=== PATIENT | female | born 1990 | race Caucasian/White ===

== ENCOUNTER 2017-02-25 18:09 | Emergency (ER) | payer OTHER ==
--- NOTE | 2017-02-25 19:38 | DIAGNOSTIC IMAGING REPORT ---
PROCEDURE: XR CHEST 2 VIEW INDICATION: CHEST PAIN TECHNIQUE: Two views. COMPARISON: None. FINDINGS: The cardiomediastinal contour and central vasculature are within normal limits. The lungs are clear without focal consolidation, pleural effusion, or pneumothorax. The visualized osseous structures are intact. IMPRESSION: 1. Normal chest.
--- NOTE | 2017-02-25 20:41 | ED CLINICAL REPORT ---
Clinical Report - Physicians/Mid Levels [facility] [address] [place] [address] 02/25/2017 18:09 Patient: TRINIDAD JENKINS Time Seen: 18:45; upon arrival, initial patient contact, initial documentation, patient care assumed. Arrived- By private vehicle. Historian- patient. HISTORY OF PRESENT ILLNESS Chief Complaint: ABDOMINAL PAIN. At its maximum, severity described as moderate. When seen in the E.D., severity described as moderate. Modifying factors- worsened by supine position. Not relieved by anything. It is described as "pain" and cramping. No radiation. It is described as located in the left upper quadrant and left abdomen. This started about 2 - 3 months ago and is still present. The patient has had nausea. No loss of appetite, vomiting or diarrhea. No additional abdominal pain. No recent travel. Similar symptoms previously: Once, milder. ( had endoscopy and was dx with polyps years ago). Recent medical care: The patient was seen recently in the office. ( went to [facility] about a week ago, no meds given, was told to see gi for endoscopy). REVIEW OF SYSTEMS No constipation, black stools, hematemesis, difficulty with urination or pain with urination. No urinary frequency, bloody stools or fever. Denies current . She complains of mild left-sided chest pain (crampy), currently mild. No radiation, modifying factors or associated symptoms. All systems otherwise negative, except as recorded above. PAST HISTORY Negative. SOCIAL HISTORY Never smoker. No alcohol use or drug use. No recent travel. Is a local resident. FAMILY HISTORY Negative. ADDITIONAL NOTES The nursing notes have been reviewed with agreement regarding the chief complaint, HPI, ROS, PMH and patient medications and allergies. PHYSICAL EXAM Vital Signs: 02/25/2017 18:49 BP: 130/80. HR: 109. RR: 20. O2 saturation: 100%. Temp: 98.2 F. Pain level now: 6/10. Have been reviewed as abnormal and appear to be correct. Blood pressure normal. Tachycardic. Respiratory rate normal. Temperature normal. Oxygen saturation normal. Appearance: Alert. Oriented X3. No acute distress. Eyes: Pupils equal, round and reactive to light. Eyes normal inspection. Neck: Normal inspection. Neck supple. CVS: Normal heart rate and rhythm. Heart sounds normal. Pulses normal. Respiratory: No respiratory distress. Breath sounds normal. Chest nontender. Abdomen: Soft and nontender. Bowel sounds normal. No organomegaly. No mass. Back: Normal inspection. Skin: Skin warm and dry. Normal skin color. No rash. Normal skin turgor. Extremities: Extremities exhibit normal ROM. No lower extremity edema. Neuro: Oriented X 3. No motor deficit. No sensory deficit. LABS, X-RAYS, AND EKG EKG: EKG time: (1932). No acute process. No acute ischemia. Normal EKG. Rate: 80. Normal EKG. The study has been interpreted contemporaneously by me (and dr banegas). The EKG appears to be a good tracing. Interpretation time: 1935. Chest X-ray: Normal Chest X-Ray. (IMPRESSION: 1. Normal chest. Electronically Final signed by:Cheyanne Dietrich MD 02/25/2017 7:37:53 PM). The X-rays were interpreted by the radiologist and contemporaneously by me. Laboratory Tests: UA-Culture if indicated: (ALIE: 02/25/2017 18:55) ( MsgRcvd 02/25/2017 20:15) Final results Test Result Flag Units (Reference) URINE COLOR YELLOW URINE APPEARANCE CLEAR URINE GLUCOSE NEGATIVE (NEGATIVE) URINE BILIRUBIN NEGATIVE (NEGATIVE) URINE KETONE 1+ (NEGATIVE) URINE SPECIFIC GRAVITY 1.010 (1.010-1.030) URINE PH 6.0 (5.0-8.0) URINE PROTEIN NEGATIVE (NEGATIVE) URINE UROBILINOGEN 0.2 EU/dL (0.2-1.0) URINE NITRITE NEGATIVE (NEGATIVE) URINE BLOOD NEGATIVE (NEGATIVE) URINE LEUK ESTERASE NEGATIVE (NEGATIVE) URINE RBC NONE SEEN rbc/hpf (0-1) URINE WBC 0-1 wbc/hpf (0-1) URINE EPITHELIAL CELLS 0-1 EPI/hpf (0-5) URINE BACTERIA NONE SEEN (NONE SEEN) URINE COMMENT CULT NOT INDICATED URINE CULTURES ARE SET-UP BASED ON THE FOLLOWING CRITERIA:POSITIVE NITRITEPOSITIVE LEUKOCYTE ESTERASEGREATER THAN 10 WHITE BLOOD CELLSMODERATE (2+) OR GREATER BACTERIA Urine: (ALIE: 02/25/2017 18:55) ( [facility] 02/25/2017 20:03) Final results Test Result Flag Units (Reference) URINE NEGATIVE CBC w Diff: (ALIE: 02/25/2017 19:35) ( [facility] 02/25/2017 19:56) Final results Test Result Flag Units (Reference) WHITE BLOOD COUNT 5.1 K/uL (4.5-11.5) RED BLOOD COUNT 4.63 M/uL (4.00-5.20) HEMOGLOBIN 15.3 gm/dL (12.0-16.0) HEMATOCRIT 45.2 % (36.0-46.0) MEAN CELL VOLUME 98 fL (80-100) MEAN CORPUSCULAR HGB 33 pg (26-34) MEAN CORPUSCULAR HGB CONC 34 g/dL (31-37) RED CELL DISTRIBUTION WIDTH 12.8 % (11.6-14.8) PLATELET COUNT 261 K/uL (150-400) NEUTROPHIL % 42.1 L % (50-75) LYMPH % 48.2 H % (25-40) MONO % 8.8 % (3-14) EOSINOPHIL % 0.5 % (0-4) BASOPHIL % 0.4 % (0-2) CMP: (ALIE: 02/25/2017 18:55) ( [facility] 02/25/2017 20:11) Final results Test Result Flag Units (Reference) GLUCOSE 96 mg/dL (70-110) BUN 9 mg/dL (7-18) CREATININE 0.9 mg/dL (0.6-1.3) Estimated GFR >60 mL/min Estimated GFR- >60 mL/min Note: Persistent reduction over 3 months in eGFR<60 mL/min/1.73 m2 defines CKD. Patients with eGFR values>=60 mL/min/1.73 m2 may also have CKD if evidence ofpersistent proteinuria. Additional information may be foundat www.kidney.org. SODIUM 142 mmol/L (136-145) POTASSIUM 3.4 L mmol/L (3.5-5.1) CHLORIDE 105 mmol/L (98-107) CARBON DIOXIDE 26 mmol/L (21-32) CALCIUM 9.4 mg/dL (8.5-10.1) TOTAL PROTEIN 8.1 g/dL (6.4-8.2) ALBUMIN 4.9 g/dL (3.3-5.0) BILIRUBIN, TOTAL 2.5 H mg/dL (0.0-1.0) ALKALINE PHOSPHATASE 46 U/L (46-116) AST (SGOT) 17 U/L (15-37) ALT (SGPT) 27 U/L (12-78) LIPASE 88 U/L (73-393) AMYLASE 39 U/L (25-115) . PROGRESS AND PROCEDURES Course of Care: nausea better after meds, and chest and abd pain, better, it took the edge off. 02/25/2017 20:00 BP: 115/65. HR: 83. RR: 16. O2 saturation: 100%. Pain level now: 6/10. Vital Signs: have been reviewed as normal and appear to be correct. Patient counseled in person regarding the patient's stable condition, test results and diagnosis. 20:37. Differential Diagnosis: I considered gastritis, gastroenteritis, peptic ulcer disease, gastroesophageal reflux disease, mesenteric lymphadenitis, diverticulitis, colon cancer, ulcerative colitis, biliary colic, cholecystitis, cholelithiasis, hepatitis, pancreatitis, common bile duct obstruction, hernia, urinary tract infection, ureterolithiasis, ovarian cyst, ovarian torsion, , endometriosis, cancer and viral syndrome as a possible cause of abdominal pain in this patient. This is a partial list of diagnoses considered. Above considerations are based on history, physical exam, reassessment and laboratory data. Differential diagnosis was discussed with patient. Disposition: Discharged home in good and improved condition (20:41). Condition: good and stable. CLINICAL IMPRESSION Acute left upper quadrant abdominal pain of undetermined cause. INSTRUCTIONS Do not work tomorrow, for two days. Warnings: GENERAL WARNINGS: Return or contact your physician immediately if your condition worsens or changes unexpectedly, if not improving as expected, or if other problems arise. SPECIFICALLY, return if you develop pain in the abdomen or pelvis, fever, the inability to keep fluids down, blood in vomitus, blood in diarrhea, fainting or lightheadedness. Prescription Medications: Zofran 4 mg: Take 1 orally every six hours as needed for nausea/vomiting. Dispense ten (10). No refills. Substitution is permissible. Pepcid 20 mg tablets: Take 1 orally every 12 hours. Dispense thirty (30). No refills. Substitution is permissible. Ultram 50 mg tablets: take 1-2 orally every 6 hours as needed for pain. Dispense twenty (20). No refills. Substitution is permissible. Follow-up: Follow up with your doctor in two days even if well. Call for an appointment. Summary of care provided to patient. Understanding of the discharge instructions verbalized by patient. Follow-up with: Eduin Triana MD, Gastroenterology, [address] [place] [address], [address] [place] [address] Ave[address] , [place], [address]; Thierno Ayoub MD, Gastroenterology, [address] [place] [address], [address] [place] [address], [address], [place], [address]; Vin An MD, Gastroenteroloy, [address] [place] [address], [address] [place] [address] [address], [place], [address]; Osorio Christian MD, Gastroenteroloy, [address] [place] [address], [address] [place] [address] [address], [place], [address]; Damaso Gutiérrez MD, Gastroenteroloy, [address] [place] [address], [address] [place] [address] [address], [place], [address] Follow up in about two days as needed. Call for an appointment. (Electronically signed by Jazz Lopes A.R.N.P. 02/25/2017 23:07)
--- NOTE | 2017-02-25 20:41 | ED CLINICAL REPORT ---
Clinical Report - Physicians/Mid Levels [facility] [address] [place] [address] 02/25/2017 18:09 Patient: TRINIDAD JENKINS Time Seen: 18:45; upon arrival, initial patient contact, initial documentation, patient care assumed. Arrived- By private vehicle. Historian- patient. HISTORY OF PRESENT ILLNESS Chief Complaint: ABDOMINAL PAIN. At its maximum, severity described as moderate. When seen in the E.D., severity described as moderate. Modifying factors- worsened by supine position. Not relieved by anything. It is described as "pain" and cramping. No radiation. It is described as located in the left upper quadrant and left abdomen. This started about 2 - 3 months ago and is still present. The patient has had nausea. No loss of appetite, vomiting or diarrhea. No additional abdominal pain. No recent travel. Similar symptoms previously: Once, milder. ( had endoscopy and was dx with polyps years ago). Recent medical care: The patient was seen recently in the office. ( went to [facility] about a week ago, no meds given, was told to see gi for endoscopy). REVIEW OF SYSTEMS No constipation, black stools, hematemesis, difficulty with urination or pain with urination. No urinary frequency, bloody stools or fever. Denies current . She complains of mild left-sided chest pain (crampy), currently mild. No radiation, modifying factors or associated symptoms. All systems otherwise negative, except as recorded above. PAST HISTORY Negative. SOCIAL HISTORY Never smoker. No alcohol use or drug use. No recent travel. Is a local resident. FAMILY HISTORY Negative. ADDITIONAL NOTES The nursing notes have been reviewed with agreement regarding the chief complaint, HPI, ROS, PMH and patient medications and allergies. PHYSICAL EXAM Vital Signs: 02/25/2017 18:49 BP: 130/80. HR: 109. RR: 20. O2 saturation: 100%. Temp: 98.2 F. Pain level now: 6/10. Have been reviewed as abnormal and appear to be correct. Blood pressure normal. Tachycardic. Respiratory rate normal. Temperature normal. Oxygen saturation normal. Appearance: Alert. Oriented X3. No acute distress. Eyes: Pupils equal, round and reactive to light. Eyes normal inspection. Neck: Normal inspection. Neck supple. CVS: Normal heart rate and rhythm. Heart sounds normal. Pulses normal. Respiratory: No respiratory distress. Breath sounds normal. Chest nontender. Abdomen: Soft and nontender. Bowel sounds normal. No organomegaly. No mass. Back: Normal inspection. Skin: Skin warm and dry. Normal skin color. No rash. Normal skin turgor. Extremities: Extremities exhibit normal ROM. No lower extremity edema. Neuro: Oriented X 3. No motor deficit. No sensory deficit. LABS, X-RAYS, AND EKG EKG: EKG time: (1932). No acute process. No acute ischemia. Normal EKG. Rate: 80. Normal EKG. The study has been interpreted contemporaneously by me (and dr banegas). The EKG appears to be a good tracing. Interpretation time: 1935. Chest X-ray: Normal Chest X-Ray. (IMPRESSION: 1. Normal chest. Electronically Final signed by:Cheyanne Dietrich MD 02/25/2017 7:37:53 PM). The X-rays were interpreted by the radiologist and contemporaneously by me. Laboratory Tests: UA-Culture if indicated: (ALIE: 02/25/2017 18:55) ( MsgRcvd 02/25/2017 20:15) Final results Test Result Flag Units (Reference) URINE COLOR YELLOW URINE APPEARANCE CLEAR URINE GLUCOSE NEGATIVE (NEGATIVE) URINE BILIRUBIN NEGATIVE (NEGATIVE) URINE KETONE 1+ (NEGATIVE) URINE SPECIFIC GRAVITY 1.010 (1.010-1.030) URINE PH 6.0 (5.0-8.0) URINE PROTEIN NEGATIVE (NEGATIVE) URINE UROBILINOGEN 0.2 EU/dL (0.2-1.0) URINE NITRITE NEGATIVE (NEGATIVE) URINE BLOOD NEGATIVE (NEGATIVE) URINE LEUK ESTERASE NEGATIVE (NEGATIVE) URINE RBC NONE SEEN rbc/hpf (0-1) URINE WBC 0-1 wbc/hpf (0-1) URINE EPITHELIAL CELLS 0-1 EPI/hpf (0-5) URINE BACTERIA NONE SEEN (NONE SEEN) URINE COMMENT CULT NOT INDICATED URINE CULTURES ARE SET-UP BASED ON THE FOLLOWING CRITERIA:POSITIVE NITRITEPOSITIVE LEUKOCYTE ESTERASEGREATER THAN 10 WHITE BLOOD CELLSMODERATE (2+) OR GREATER BACTERIA Urine: (ALIE: 02/25/2017 18:55) ( [facility] 02/25/2017 20:03) Final results Test Result Flag Units (Reference) URINE NEGATIVE CBC w Diff: (ALIE: 02/25/2017 19:35) ( [facility] 02/25/2017 19:56) Final results Test Result Flag Units (Reference) WHITE BLOOD COUNT 5.1 K/uL (4.5-11.5) RED BLOOD COUNT 4.63 M/uL (4.00-5.20) HEMOGLOBIN 15.3 gm/dL (12.0-16.0) HEMATOCRIT 45.2 % (36.0-46.0) MEAN CELL VOLUME 98 fL (80-100) MEAN CORPUSCULAR HGB 33 pg (26-34) MEAN CORPUSCULAR HGB CONC 34 g/dL (31-37) RED CELL DISTRIBUTION WIDTH 12.8 % (11.6-14.8) PLATELET COUNT 261 K/uL (150-400) NEUTROPHIL % 42.1 L % (50-75) LYMPH % 48.2 H % (25-40) MONO % 8.8 % (3-14) EOSINOPHIL % 0.5 % (0-4) BASOPHIL % 0.4 % (0-2) CMP: (ALIE: 02/25/2017 18:55) ( [facility] 02/25/2017 20:11) Final results Test Result Flag Units (Reference) GLUCOSE 96 mg/dL (70-110) BUN 9 mg/dL (7-18) CREATININE 0.9 mg/dL (0.6-1.3) Estimated GFR >60 mL/min Estimated GFR- >60 mL/min Note: Persistent reduction over 3 months in eGFR<60 mL/min/1.73 m2 defines CKD. Patients with eGFR values>=60 mL/min/1.73 m2 may also have CKD if evidence ofpersistent proteinuria. Additional information may be foundat www.[email or web address].org. SODIUM 142 mmol/L (136-145) POTASSIUM 3.4 L mmol/L (3.5-5.1) CHLORIDE 105 mmol/L (98-107) CARBON DIOXIDE 26 mmol/L (21-32) CALCIUM 9.4 mg/dL (8.5-10.1) TOTAL PROTEIN 8.1 g/dL (6.4-8.2) ALBUMIN 4.9 g/dL (3.3-5.0) BILIRUBIN, TOTAL 2.5 H mg/dL (0.0-1.0) ALKALINE PHOSPHATASE 46 U/L (46-116) AST (SGOT) 17 U/L (15-37) ALT (SGPT) 27 U/L (12-78) LIPASE 88 U/L (73-393) AMYLASE 39 U/L (25-115) . PROGRESS AND PROCEDURES Course of Care: nausea better after meds, and chest and abd pain, better, it took the edge off. 02/25/2017 20:00 BP: 115/65. HR: 83. RR: 16. O2 saturation: 100%. Pain level now: 6/10. Vital Signs: have been reviewed as normal and appear to be correct. Patient counseled in person regarding the patient's stable condition, test results and diagnosis. 20:37. Differential Diagnosis: I considered gastritis, gastroenteritis, peptic ulcer disease, gastroesophageal reflux disease, mesenteric lymphadenitis, diverticulitis, colon cancer, ulcerative colitis, biliary colic, cholecystitis, cholelithiasis, hepatitis, pancreatitis, common bile duct obstruction, hernia, urinary tract infection, ureterolithiasis, ovarian cyst, ovarian torsion, , endometriosis, cancer and viral syndrome as a possible cause of abdominal pain in this patient. This is a partial list of diagnoses considered. Above considerations are based on history, physical exam, reassessment and laboratory data. Differential diagnosis was discussed with patient. Disposition: Discharged home in good and improved condition (20:41). Condition: good and stable. CLINICAL IMPRESSION Acute left upper quadrant abdominal pain of undetermined cause. INSTRUCTIONS Do not work tomorrow, for two days. Warnings: GENERAL WARNINGS: Return or contact your physician immediately if your condition worsens or changes unexpectedly, if not improving as expected, or if other problems arise. SPECIFICALLY, return if you develop pain in the abdomen or pelvis, fever, the inability to keep fluids down, blood in vomitus, blood in diarrhea, fainting or lightheadedness. Prescription Medications: Zofran 4 mg: Take 1 orally every six hours as needed for nausea/vomiting. Dispense ten (10). No refills. Substitution is permissible. Pepcid 20 mg tablets: Take 1 orally every 12 hours. Dispense thirty (30). No refills. Substitution is permissible. Ultram 50 mg tablets: take 1-2 orally every 6 hours as needed for pain. Dispense twenty (20). No refills. Substitution is permissible. Follow-up: Follow up with your doctor in two days even if well. Call for an appointment. Summary of care provided to patient. Understanding of the discharge instructions verbalized by patient. Follow-up with: Eduin Triana MD, Gastroenterology, [address] [place] [address], [address] [place] [address] Ave[address] , [place], [address]; Thierno Ayoub MD, Gastroenterology, [address] [place] [address], [address] [place] [address], [address], [place], [address]; Vin An MD, Gastroenteroloy, [address] [place] [address], [address] [place] [address] [address], [place], [address]; Osorio Christian MD, Gastroenteroloy, [address] [place] [address], [address] [place] [address] [address], [place], [address]; Damaso Gutiérrez MD, Gastroenteroloy, [address] [place] [address], [address] [place] [address] [address], [place], [address] Follow up in about two days as needed. Call for an appointment. (Electronically signed by Jazz Lopes A.R.N.P. 02/25/2017 23:07)
--- NOTE | 2017-02-25 20:41 | ED ORDER SUMMARY ---
..... Patient: TRINIDAD JENKINS OrderSheet [facility] VisitID: [id number] [address] [place] [address] 26y, F Registration Date/Time: 02/25/2017 ORDER SHEET Weight: 52.1 kg (stated) Allergies: No Known Drug Allergy GENERAL ORDERS: Chest 2V Urgent (19:17 02/25/2017 HBivens A.R.N.P.) (Ack 19:23 IJurca ER Tech1) (19:24 IJurca ER Tech1) CBC w Diff Urgent (19:17 02/25/2017 HBivens A.R.N.P.) (Ack 19:23 IJurca ER Tech1) (19:44 DDavis R.N.) CMP Urgent (19:02/25/2017 HBivens A.R.N.P.) (Ack 19:23 IJurca ER Tech1) (19:44 DDavis R.N.) UA-Culture if indicated Urgent (19:17 02/25/2017 HBivens A.R.N.P.) (Ack 19:23 IJurca ER Tech1) (19:44 DDavis R.N.) Amylase Urgent (19:17 02/25/2017 HBivens A.R.N.P.) (Ack 19:23 IJurca ER Tech1) (19:44 DDavis R.N.) Lipase Urgent (19:17 02/25/2017 HBivens A.R.N.P.) (Ack 19:23 IJurca ER Tech1) (19:44 DDavis R.N.) Urine Urgent (19:17 02/25/2017 HBivens A.R.N.P.) (Ack 19:23 IJurca ER Tech1) (19:44 DDavis R.N.) EKG - ER Stat (19:02/25/2017 HBivens A.R.N.P.) (Ack 19:23 IJurca ER Tech1) (19:41 CHategekimana) MEDICATION ORDERS: IV FLUIDS: Toradol IV 30 mg (NOW) (19:17 02/25/2017 HBivens A.R.N.P.) (19:45 DDavis R.N.) Zofran IV 4 mg (NOW) (19:02/25/2017 HBivens A.R.N.P.) (19:45 DDavis R.N.) IV Saline Lock (19:02/25/2017 HBivens A.R.N.P.) (19:45 DDavis R.N.) ORDER SHEET NOTES: [Electronically signed by Beth Ramirez R.N. (22:22 02/25/2017)] [Electronically signed by Jazz LopesNHumzaPHumza (23:06 02/25/2017)] [Electronically locked/signed by Beth Ramirez R.N. (22:22 02/25/2017)]
--- NOTE | 2017-02-25 20:41 | ED ORDER SUMMARY ---
..... Patient: TRINIDAD JENKINS OrderSheet [facility] VisitID: [id number] [address] [place] [address] 26y, F Registration Date/Time: 02/25/2017 ORDER SHEET Weight: 52.1 kg (stated) Allergies: No Known Drug Allergy GENERAL ORDERS: Chest 2V Urgent (19:17 02/25/2017 HBivens A.R.N.P.) (Ack 19:23 IJurca ER Tech1) (19:24 IJurca ER Tech1) CBC w Diff Urgent (19:17 02/25/2017 HBivens A.R.N.P.) (Ack 19:23 IJurca ER Tech1) (19:44 DDavis R.N.) CMP Urgent (19:02/25/2017 HBivens A.R.N.P.) (Ack 19:23 IJurca ER Tech1) (19:44 DDavis R.N.) UA-Culture if indicated Urgent (19:17 02/25/2017 HBivens A.R.N.P.) (Ack 19:23 IJurca ER Tech1) (19:44 DDavis R.N.) Amylase Urgent (19:17 02/25/2017 HBivens A.R.N.P.) (Ack 19:23 IJurca ER Tech1) (19:44 DDavis R.N.) Lipase Urgent (19:17 02/25/2017 HBivens A.R.N.P.) (Ack 19:23 IJurca ER Tech1) (19:44 DDavis R.N.) Urine Urgent (19:17 02/25/2017 HBivens A.R.N.P.) (Ack 19:23 IJurca ER Tech1) (19:44 DDavis R.N.) EKG - ER Stat (19:02/25/2017 HBivens A.R.N.P.) (Ack 19:23 IJurca ER Tech1) (19:41 CHategekimana) MEDICATION ORDERS: IV FLUIDS: Toradol IV 30 mg (NOW) (19:17 02/25/2017 HBivens A.R.N.P.) (19:45 DDavis R.N.) Zofran IV 4 mg (NOW) (19:02/25/2017 HBivens A.R.N.P.) (19:45 DDavis R.N.) IV Saline Lock (19:02/25/2017 HBivens A.R.N.P.) (19:45 DDavis R.N.) ORDER SHEET NOTES: [Electronically signed by Beth Ramirez R.N. (22:22 02/25/2017)] [Electronically signed by Jazz LopesNHumzaPHumza (23:06 02/25/2017)] [Electronically locked/signed by Beth Ramirez R.N. (22:22 02/25/2017)]
--- NOTE | 2017-02-25 20:41 | ED NURSING NOTES ---
Clinical Report - Nurses Located Within [facility] [address] [place] [address] 02/25/2017 18:09 Patient: TRINIDAD JENKINS TRIAGE Triage time 1840. Acuity: LEVEL 3. Chief Complaint: (pt states she has had GI upset for a couple of weeks. started having chest pain last night that awoker her from sleep). 18:40. --18:53 Beth Ramirez R.N. 18:49 02/25/17. BP: 130/80. HR: 109. RR: 20. O2 saturation: 100%. Temp: 98.2 F. Pain level now: 05/02. --18:53 Beth Ramirez R.N. Weight: 52.1 kg stated. Height/Length: 67 inches Per Patient. BMI: 18. --18:51 Beth Ramirez R.N. Medications None. --18:49 Beth Ramirez R.N. Allergies No Known Drug Allergy. --18:49 Beth Ramirez R.N. History Arrived by private vehicle. Historian: patient. Accompanied by family. Primary physician (). The patient has had difficulty breathing, nausea and a cough. Reports experiencing sweating episodes. ( left sided abd discomfort "like I'm bloated"). No vomiting. PAST MEDICAL HX: Negative. Last normal menstrual period- finished yesterday. SURGERY HX: No history of previous surgery. SOCIAL HX: Never smoker. No alcohol use. --18:53 Beth Ramirez R.N. Interventions ID band on patient. To treatment room. --18:53 Beth Ramirez R.N. PHYSICAL ASSESSMENT 18:40. Ambulatory to room. Patient gowned. GENERAL / NEURO / PSYCH: Alert. Oriented X 4. Appears anxious. RESPIRATORY: Respirations not labored. CVS: Pulses within normal limits. Capillary refill less than 2 seconds. GI / : The patient has had nausea. Abdomen soft. Abdominal tenderness. EXTREMITIES: No lower extremity edema. SKIN: Skin is warm and dry. --18:53 Beth Ramirez R.N. NURSING PROGRESS NOTES 18:40. Patient gowned. Reassurance given. Patient identifiers checked. Call light placed in reach. Side rails up. Bed placed in lowest position. Patient ready for evaluation- chart flagged. --18:53 Beth Ramirez R.N. ( Report received from Beth Ramirez, RN). --19:21 Tariq Pardo R.N. EKG time: (1933 PM). EKG was ordered, performed by a tech and shown to the ED physician. --19:42 Lily Ochoa 19:35 02/25/2017 Site #1 started via IV in the right antecubital space with an 20g angiocath, with aseptic technique and good blood return; one attempt. Blood drawn: rainbow set. Labeled in the presence of the patient and sent to the lab. Saline lock flushed with 10 mL saline. --19:45 Tariq Pardo R.N. 19:39 02/25/2017 Zofran (Ondansetron HCl) IVP 4 mg given over 2 minute(s) via site #1. Allergies verified and confirmed 5 rights. IV patency established. IV site checked: no pain, redness, or swelling. IV flushed thoroughly pre- and post-medication administration. IVP given by RN. --19:45 Tariq Pardo R.N. 19:42 02/25/2017 Toradol IVP 30 mg given over 2 minute(s) via site #1. Allergies verified and confirmed 5 rights. IV patency established. IV site checked: no pain, redness, or swelling. IV flushed thoroughly pre- and post-medication administration. IVP given by RN. --19:45 Tariq Pardo R.N. Urine test negative. flood control engineer check passed. --19:47 Tariq Pardo R.N. ( Report given to Beth Ramirez, RN--Patient care transferred back to her at this time.). --19:59 Tariq Pardo R.N. 20:00 02/25/17. BP: 115/65. HR: 83. RR: 16. O2 saturation: 100% on room air. Temp: deferred. Pain level now: 6/10. Additional comments: playing game on phone, family at bedside. in no acute distress . --20:32 Beth Ramirez R.N. 20:02/25/2017 Toradol IVP Response: symptoms are the same. The patient feels the same. (no change). --20:33 Beth Ramirez R.N. 20:02/25/2017 Zofran IVP Response: pain is gone now. Symptoms have improved the patient feels better. (no nausea for last 20 min). --20:33 Beth Ramirez R.N. 21:02/25/2017 Site #1 removed upon discharge. Bandaid applied. --21:00 Beth Ramirez R.N. 21:02/25/2017 IV Saline Lock Drip IV Discontinued: bag #1 STOPPED upon discharge. Total amount infused: 0 mL. IV patency established. IV site checked: no pain, redness, or swelling. IV flushed thoroughly. --21:00 Beth Ramirez R.N. DISPOSITION / DISCHARGE 2100. Condition at departure: improved and stable. No learning barriers present. Discharge instructions provided and reviewed with the patient and spouse. Reviewed medication(s) (pepcid, zofran, ultram). Patient and spouse verbalized understanding. Written instructions provided in Albanian. The patient was discharged home and accompanied by spouse. She left the Emergency Department ambulatory and via private vehicle. Spouse driving. --22:21 Beth Ramirez R.N. 21:00 02/25/17. BP: 120/82. HR: 76. RR: 16. O2 saturation: 99% on room air. Temp: deferred. Pain level now: 610. --22:21 Beth Ramirez R.N. Locked/Released at 02/25/2017 22:22 by Beth Ramirez R.N.
--- NOTE | 2017-02-25 23:07 | ED DISCHARGE INSTRUCTIONS ---
Patient: TRINIDAD JENKINS General Instructions [facility] VisitID: [id number] [place] [address] 26y, F Registration Date/Time: 02/25/2017 Acute left upper quadrant abdominal pain of undetermined cause. INSTRUCTIONS Do not work tomorrow, for two days. Warnings: GENERAL WARNINGS: Return or contact your physician immediately if your condition worsens or changes unexpectedly, if not improving as expected, or if other problems arise. SPECIFICALLY, return if you develop pain in the abdomen or pelvis, fever, the inability to keep fluids down, blood in vomitus, blood in diarrhea, fainting or lightheadedness. Prescription Medications: Zofran 4 mg: Take 1 orally every six hours as needed for nausea/vomiting. Dispense ten (10). No refills. Substitution is permissible. Pepcid 20 mg tablets: Take 1 orally every 12 hours. Dispense thirty (30). No refills. Substitution is permissible. Ultram 50 mg tablets: take 1-2 orally every 6 hours as needed for pain. Dispense twenty (20). No refills. Substitution is permissible. Follow-up: Follow up with your doctor in two days even if well. Call for an appointment. Summary of care provided to patient. Understanding of the discharge instructions verbalized by patient. Follow-up with: Eduin Triana MD, Gastroenterology, , [address] [place] [address] Ave[address] , [place], [address]; Thierno Ayoub MD, Gastroenterology, , [address] [place] [address], [address], [place], [address]; Vin An MD, Gastroenteroloy, , [address] [place] [address] [address], [place], [address]; Osorio Christian MD, Gastroenteroloy, , [address] [place] [address] [address], [place], [address]; Damaso Gutiérrez MD, Gastroenteroloy, , [address] [place] [address] [address], [place], [address] Follow up in about two days as needed. Call for an appointment. ADDITIONAL INFORMATION Abdominal Pain, Unknown Cause (Female) The exact cause of your abdominal (stomach) pain is not certain. This does not mean that this is something to worry about, or the right tests were not done. Everyone likes to know the exact cause of the problem, but sometimes with abdominal pain, there is no clear-cut cause, and this could be a good thing. The good news is that your symptoms can be treated, and you will feel better. Your condition does not seem serious now; however, sometimes the signs of a serious problem may take more time to appear. For this reason,it is important for you to watch for any new symptoms, problems,or worsening of your condition. Over the next few days, the abdominal pain may come and go, or be continuous. Other common symptoms can include nausea and vomiting. Sometimes it can be difficult to tell if you feel nauseous, you may just feel bad and not associate that feeling with nausea. Constipation, diarrhea, and a fever may go along with the pain. The pain may continue even if treated correctly over the following days. Depending on how things go, sometimes the cause can become clear and may require further or different treatment. Additional evaluations, medications, or tests may be needed. Home care Your health care provider may prescribe medications for pain, symptoms, or an infection. Follow the health care provider's instructions for taking these medications. General care Rest until your next exam. No strenuous activities. Try to find positions that ease discomfort. A small pillow placed on the abdomen may help relieve pain. Something warm on your abdomen (such as a heating pad) may help, but be careful not to burn yourself. Diet Do not force yourself to eat, especially if having cramps, vomiting, or diarrhea. Water is important so you do not get dehydrated. Soup may also be good. Sports drinks may also help, especially if they are not too acidic. Make sure you don't drink sugary drinks as this can make things worse. Take liquids in small amounts. Do not guzzle them. Caffeine sometimes makes the pain and cramping worse. Avoid dairy products if you have vomiting or diarrhea. Don't eat large amounts at a time. Wait a few minutes between bites. Eat a diet low in fiber (called a low-residue diet). Foods allowed include refined breads, white rice, fruit and vegetable juices without pulp, tender meats. These foods will pass more easily through the intestine. Avoid whole-grain foods, whole fruits and vegetables, meats, seeds and nuts, fried or fatty foods, dairy, alcohol and spicy foods until your symptoms go away. Follow-up care Follow up with your health care provider as instructed, or if your pain does not begin to improve in the next 24 hours. When to seek medical care Seek prompt medical care if any of the following occur: Pain gets worse or moves to the right lower abdomen New or worsening vomiting or diarrhea Swelling of the abdomen Unable to pass stool for more than three days Fever of 100.4F (38C) or higher, or as directed by your healthcare provider. Blood in vomit or bowel movements (dark red or black color) Jaundice (yellow color of eyes and skin) Weakness, dizziness Chest, arm, back, neck or jaw pain Unexpected vaginal bleeding or missed period Call 911 Call emergency services if any of the following occur: Trouble breathing Confusion Fainting or loss of consciousness Rapid heart rate Seizure Ondansetron Oral disintegrating tablet What is this medicine? ONDANSETRON (on RODOLFO se daphne) is used to treat nausea and vomiting caused by chemotherapy. It is also used to prevent or treat nausea and vomiting after surgery. How should I use this medicine? These tablets are made to dissolve in the mouth. Do not try to push the tablet through the foil backing. With dry hands, peel away the foil backing and gently remove the tablet. Place the tablet in the mouth and allow it to dissolve, then swallow. While you may take these tablets with water, it is not necessary to do so. Talk to your mgmt specialist regarding the use of this medicine in children. Special care may be needed. What side effects may I notice from receiving this medicine? Side effects that you should report to your doctor or health care associate as soon as possible: allergic reactions like skin rash, itching or hives, swelling of the face, lips, or tongue breathing problems dizziness fast or irregular heartbeat feeling faint or lightheaded, falls fever and chills swelling of the hands and feet tightness in the chest Side effects that usually do not require medical attention (report to your doctor or health care associate if they continue or are bothersome): constipation or diarrhea headache What may interact with this medicine? Do not take this medicine with any of the following medications: -apomorphine -cisapride -dofetilide -dronedarone -pimozide -thioridazine -ziprasidone This medicine may also interact with the following medications: -carbamazepine -phenytoin -rifampicin -tramadol -other medicines that prolong the QT interval (cause an abnormal heart rhythm) What if I miss a dose? If you miss a dose, take it as soon as you can. If it is almost time for your next dose, take only that dose. Do not take double or extra doses. Where should I keep my medicine? Keep out of the reach of children. Store between 2 and 30 degrees C (36 and 86 degrees F). Throw away any unused medicine after the expiration date. What should I tell my health care provider before I take this medicine? They need to know if you have any of these conditions: heart disease history of irregular heartbeat liver disease low levels of magnesium or potassium in the blood an unusual or allergic reaction to ondansetron, granisetron, other medicines, foods, dyes, or preservatives or trying to get breast-feeding What should I watch for while using this medicine? Check with your doctor or health care associate as soon as you can if you have any sign of an allergic reaction. Famotidine Oral tablet What is this medicine? FAMOTIDINE (fa GHADA ti adri) is a type of antihistamine that blocks the release of stomach acid. It is used to treat stomach or intestinal ulcers. It can also relieve heartburn from acid reflux. How should I use this medicine? Take this medicine by mouth with a glass of water. Follow the directions on the prescription label. If you only take this medicine once a day, take it at bedtime. Take your doses at regular intervals. Do not take your medicine more often than directed. Talk to your mgmt specialist regarding the use of this medicine in children. Special care may be needed. What side effects may I notice from receiving this medicine? Side effects that you should report to your doctor or health care associate as soon as possible: agitation, nervousness confusion hallucinations skin rash, itching Side effects that usually do not require medical attention (report to your doctor or health care associate if they continue or are bothersome): constipation diarrhea dizziness headache What may interact with this medicine? delavirdine itraconazole ketoconazole What if I miss a dose? If you miss a dose, take it as soon as you can. If it is almost time for your next dose, take only that dose. Do not take double or extra doses. Where should I keep my medicine? Keep out of the reach of children. Store at room temperature between 15 and 30 degrees C (59 and 86 degrees F). Do not freeze. Throw away any unused medicine after the expiration date. What should I tell my health care provider before I take this medicine? They need to know if you have any of these conditions: kidney or liver disease trouble swallowing an unusual or allergic reaction to famotidine, other medicines, foods, dyes, or preservatives or trying to get breast-feeding What should I watch for while using this medicine? Tell your doctor or health care associate if your condition does not start to get better or if it gets worse. Finish the full course of tablets prescribed, even if you feel better. Do not take with aspirin, ibuprofen or other antiinflammatory medicines. These can make your condition worse. Do not smoke cigarettes or drink alcohol. These cause irritation in your stomach and can increase the time it will take for ulcers to heal. If you get black, tarry stools or vomit up what looks like coffee grounds, call your doctor or health care associate at once. You may have a bleeding ulcer. Tramadol Hydrochloride Oral tablet What is this medicine? TRAMADOL (TRA ma dole) is a pain reliever. It is used to treat moderate to severe pain in adults. How should I use this medicine? Take this medicine by mouth with a full glass of water. Follow the directions on the prescription label. If the medicine upsets your stomach, take it with food or milk. Do not take more medicine than you are told to take. Talk to your mgmt specialist regarding the use of this medicine in children. Special care may be needed. What side effects may I notice from receiving this medicine? Side effects that you should report to your doctor or health care associate as soon as possible: allergic reactions like skin rash, itching or hives, swelling of the face, lips, or tongue breathing difficulties, wheezing confusion itching light headedness or fainting spells redness, blistering, peeling or loosening of the skin, including inside the mouth seizures Side effects that usually do not require medical attention (report to your doctor or health care associate if they continue or are bothersome): constipation dizziness drowsiness headache nausea, vomiting What may interact with this medicine? Do not take this medicine with any of the following medications: MAOIs like Carbex, Eldepryl, Marplan, Nardil, and Parnate This medicine may also interact with the following medications: alcohol or medicines that contain alcohol antihistamines benzodiazepines bupropion carbamazepine or oxcarbazepine clozapine cyclobenzaprine digoxin furazolidone linezolid medicines for depression, anxiety, or psychotic disturbances medicines for migraine headache like almotriptan, eletriptan, frovatriptan, naratriptan, rizatriptan, sumatriptan, zolmitriptan medicines for pain like pentazocine, buprenorphine, butorphanol, meperidine, nalbuphine, and propoxyphene medicines for sleep muscle relaxants naltrexone phenobarbital phenothiazines like perphenazine, thioridazine, chlorpromazine, mesoridazine, fluphenazine, prochlorperazine, promazine, and trifluoperazine procarbazine warfarin What if I miss a dose? If you miss a dose, take it as soon as you can. If it is almost time for your next dose, take only that dose. Do not take double or extra doses. Where should I keep my medicine? Keep out of the reach of children. Store at room temperature between 15 and 30 degrees C (59 and 86 degrees F). Keep container tightly closed. Throw away any unused medicine after the expiration date. What should I tell my health care provider before I take this medicine? They need to know if you have any of these conditions: brain tumor depression drug abuse or addiction head injury if you frequently drink alcohol containing drinks kidney disease or trouble passing urine liver disease lung disease, asthma, or breathing problems seizures or epilepsy suicidal thoughts, plans, or attempt; a previous suicide attempt by you or a family member an unusual or allergic reaction to tramadol, codeine, other medicines, foods, dyes, or preservatives or trying to get breast-feeding What should I watch for while using this medicine? Tell your doctor or health care associate if your pain does not go away, if it gets worse, or if you have new or a different type of pain. You may develop tolerance to the medicine. Tolerance means that you will need a higher dose of the medicine for pain relief. Tolerance is normal and is expected if you take this medicine for a long time. Do not suddenly stop taking your medicine because you may develop a severe reaction. Your body becomes used to the medicine. This does NOT mean you are addicted. Addiction is a behavior related to getting and using a drug for a non-medical reason. If you have pain, you have a medical reason to take pain medicine. Your doctor will tell you how much medicine to take. If your doctor wants you to stop the medicine, the dose will be slowly lowered over time to avoid any side effects. You may get drowsy or dizzy. Do not drive, use machinery, or do anything that needs mental alertness until you know how this medicine affects you. Do not stand or sit up quickly, especially if you are an older patient. This reduces the risk of dizzy or fainting spells. Alcohol can increase or decrease the effects of this medicine. Avoid alcoholic drinks. You may have constipation. Try to have a bowel movement at least every 2 to 3 days. If you do not have a bowel movement for 3 days, call your doctor or health care associate. Your mouth may get dry. Chewing sugarless gum or sucking hard candy, and drinking plenty of water may help. Contact your doctor if the problem does not go away or is severe. You have been given the following additional information: Abdominal Pain, Unknown Cause, (Female) Ondansetron Oral disintegrating tablet Famotidine Oral tablet Tramadol Hydrochloride Oral tablet Do not work tomorrow, for two days. (Electronically signed by Jazz Lopes A.R.N.P. 02/25/2017 23:07)
--- NOTE | 2017-02-25 23:07 | ED DISCHARGE INSTRUCTIONS ---
Patient: TRINIDAD JENKINS General Instructions Located Within [facility] VisitID: [id number] [place] [address] 26y, F Registration Date/Time: 02/25/2017 Acute left upper quadrant abdominal pain of undetermined cause. INSTRUCTIONS Do not work tomorrow, for two days. Warnings: GENERAL WARNINGS: Return or contact your physician immediately if your condition worsens or changes unexpectedly, if not improving as expected, or if other problems arise. SPECIFICALLY, return if you develop pain in the abdomen or pelvis, fever, the inability to keep fluids down, blood in vomitus, blood in diarrhea, fainting or lightheadedness. Prescription Medications: Zofran 4 mg: Take 1 orally every six hours as needed for nausea/vomiting. Dispense ten (10). No refills. Substitution is permissible. Pepcid 20 mg tablets: Take 1 orally every 12 hours. Dispense thirty (30). No refills. Substitution is permissible. Ultram 50 mg tablets: take 1-2 orally every 6 hours as needed for pain. Dispense twenty (20). No refills. Substitution is permissible. Follow-up: Follow up with your doctor in two days even if well. Call for an appointment. Summary of care provided to patient. Understanding of the discharge instructions verbalized by patient. Follow-up with: Eduin Triana MD, Gastroenterology, , [address] [place] [address] Ave[address] , [place], [address]; Thierno Ayoub MD, Gastroenterology, , [address] [place] [address], [address], [place], [address]; Vin An MD, Gastroenteroloy, , [address] [place] [address] [address], [place], [address]; Osorio Christian MD, Gastroenteroloy, , [address] [place] [address] [address], [place], [address]; Damaso Gutiérrez MD, Gastroenteroloy, , [address] [place] [address] [address], [place], [address] Follow up in about two days as needed. Call for an appointment. ADDITIONAL INFORMATION Abdominal Pain, Unknown Cause (Female) The exact cause of your abdominal (stomach) pain is not certain. This does not mean that this is something to worry about, or the right tests were not done. Everyone likes to know the exact cause of the problem, but sometimes with abdominal pain, there is no clear-cut cause, and this could be a good thing. The good news is that your symptoms can be treated, and you will feel better. Your condition does not seem serious now; however, sometimes the signs of a serious problem may take more time to appear. For this reason,it is important for you to watch for any new symptoms, problems,or worsening of your condition. Over the next few days, the abdominal pain may come and go, or be continuous. Other common symptoms can include nausea and vomiting. Sometimes it can be difficult to tell if you feel nauseous, you may just feel bad and not associate that feeling with nausea. Constipation, diarrhea, and a fever may go along with the pain. The pain may continue even if treated correctly over the following days. Depending on how things go, sometimes the cause can become clear and may require further or different treatment. Additional evaluations, medications, or tests may be needed. Home care Your health care provider may prescribe medications for pain, symptoms, or an infection. Follow the health care provider's instructions for taking these medications. General care Rest until your next exam. No strenuous activities. Try to find positions that ease discomfort. A small pillow placed on the abdomen may help relieve pain. Something warm on your abdomen (such as a heating pad) may help, but be careful not to burn yourself. Diet Do not force yourself to eat, especially if having cramps, vomiting, or diarrhea. Water is important so you do not get dehydrated. Soup may also be good. Sports drinks may also help, especially if they are not too acidic. Make sure you don't drink sugary drinks as this can make things worse. Take liquids in small amounts. Do not guzzle them. Caffeine sometimes makes the pain and cramping worse. Avoid dairy products if you have vomiting or diarrhea. Don't eat large amounts at a time. Wait a few minutes between bites. Eat a diet low in fiber (called a low-residue diet). Foods allowed include refined breads, white rice, fruit and vegetable juices without pulp, tender meats. These foods will pass more easily through the intestine. Avoid whole-grain foods, whole fruits and vegetables, meats, seeds and nuts, fried or fatty foods, dairy, alcohol and spicy foods until your symptoms go away. Follow-up care Follow up with your health care provider as instructed, or if your pain does not begin to improve in the next 24 hours. When to seek medical care Seek prompt medical care if any of the following occur: Pain gets worse or moves to the right lower abdomen New or worsening vomiting or diarrhea Swelling of the abdomen Unable to pass stool for more than three days Fever of 100.4F (38C) or higher, or as directed by your healthcare provider. Blood in vomit or bowel movements (dark red or black color) Jaundice (yellow color of eyes and skin) Weakness, dizziness Chest, arm, back, neck or jaw pain Unexpected vaginal bleeding or missed period Call 911 Call emergency services if any of the following occur: Trouble breathing Confusion Fainting or loss of consciousness Rapid heart rate Seizure Ondansetron Oral disintegrating tablet What is this medicine? ONDANSETRON (on RODOLFO se daphne) is used to treat nausea and vomiting caused by chemotherapy. It is also used to prevent or treat nausea and vomiting after surgery. How should I use this medicine? These tablets are made to dissolve in the mouth. Do not try to push the tablet through the foil backing. With dry hands, peel away the foil backing and gently remove the tablet. Place the tablet in the mouth and allow it to dissolve, then swallow. While you may take these tablets with water, it is not necessary to do so. Talk to your windscreen fitter regarding the use of this medicine in children. Special care may be needed. What side effects may I notice from receiving this medicine? Side effects that you should report to your doctor or health care aid as soon as possible: allergic reactions like skin rash, itching or hives, swelling of the face, lips, or tongue breathing problems dizziness fast or irregular heartbeat feeling faint or lightheaded, falls fever and chills swelling of the hands and feet tightness in the chest Side effects that usually do not require medical attention (report to your doctor or health care aid if they continue or are bothersome): constipation or diarrhea headache What may interact with this medicine? Do not take this medicine with any of the following medications: -apomorphine -cisapride -dofetilide -dronedarone -pimozide -thioridazine -ziprasidone This medicine may also interact with the following medications: -carbamazepine -phenytoin -rifampicin -tramadol -other medicines that prolong the QT interval (cause an abnormal heart rhythm) What if I miss a dose? If you miss a dose, take it as soon as you can. If it is almost time for your next dose, take only that dose. Do not take double or extra doses. Where should I keep my medicine? Keep out of the reach of children. Store between 2 and 30 degrees C (36 and 86 degrees F). Throw away any unused medicine after the expiration date. What should I tell my health care provider before I take this medicine? They need to know if you have any of these conditions: heart disease history of irregular heartbeat liver disease low levels of magnesium or potassium in the blood an unusual or allergic reaction to ondansetron, granisetron, other medicines, foods, dyes, or preservatives or trying to get breast-feeding What should I watch for while using this medicine? Check with your doctor or health care aid as soon as you can if you have any sign of an allergic reaction. Famotidine Oral tablet What is this medicine? FAMOTIDINE (fa GHADA ti adri) is a type of antihistamine that blocks the release of stomach acid. It is used to treat stomach or intestinal ulcers. It can also relieve heartburn from acid reflux. How should I use this medicine? Take this medicine by mouth with a glass of water. Follow the directions on the prescription label. If you only take this medicine once a day, take it at bedtime. Take your doses at regular intervals. Do not take your medicine more often than directed. Talk to your windscreen fitter regarding the use of this medicine in children. Special care may be needed. What side effects may I notice from receiving this medicine? Side effects that you should report to your doctor or health care aid as soon as possible: agitation, nervousness confusion hallucinations skin rash, itching Side effects that usually do not require medical attention (report to your doctor or health care aid if they continue or are bothersome): constipation diarrhea dizziness headache What may interact with this medicine? delavirdine itraconazole ketoconazole What if I miss a dose? If you miss a dose, take it as soon as you can. If it is almost time for your next dose, take only that dose. Do not take double or extra doses. Where should I keep my medicine? Keep out of the reach of children. Store at room temperature between 15 and 30 degrees C (59 and 86 degrees F). Do not freeze. Throw away any unused medicine after the expiration date. What should I tell my health care provider before I take this medicine? They need to know if you have any of these conditions: kidney or liver disease trouble swallowing an unusual or allergic reaction to famotidine, other medicines, foods, dyes, or preservatives or trying to get breast-feeding What should I watch for while using this medicine? Tell your doctor or health care aid if your condition does not start to get better or if it gets worse. Finish the full course of tablets prescribed, even if you feel better. Do not take with aspirin, ibuprofen or other antiinflammatory medicines. These can make your condition worse. Do not smoke cigarettes or drink alcohol. These cause irritation in your stomach and can increase the time it will take for ulcers to heal. If you get black, tarry stools or vomit up what looks like coffee grounds, call your doctor or health care aid at once. You may have a bleeding ulcer. Tramadol Hydrochloride Oral tablet What is this medicine? TRAMADOL (TRA ma dole) is a pain reliever. It is used to treat moderate to severe pain in adults. How should I use this medicine? Take this medicine by mouth with a full glass of water. Follow the directions on the prescription label. If the medicine upsets your stomach, take it with food or milk. Do not take more medicine than you are told to take. Talk to your windscreen fitter regarding the use of this medicine in children. Special care may be needed. What side effects may I notice from receiving this medicine? Side effects that you should report to your doctor or health care aid as soon as possible: allergic reactions like skin rash, itching or hives, swelling of the face, lips, or tongue breathing difficulties, wheezing confusion itching light headedness or fainting spells redness, blistering, peeling or loosening of the skin, including inside the mouth seizures Side effects that usually do not require medical attention (report to your doctor or health care aid if they continue or are bothersome): constipation dizziness drowsiness headache nausea, vomiting What may interact with this medicine? Do not take this medicine with any of the following medications: MAOIs like Carbex, Eldepryl, Marplan, Nardil, and Parnate This medicine may also interact with the following medications: alcohol or medicines that contain alcohol antihistamines benzodiazepines bupropion carbamazepine or oxcarbazepine clozapine cyclobenzaprine digoxin furazolidone linezolid medicines for depression, anxiety, or psychotic disturbances medicines for migraine headache like almotriptan, eletriptan, frovatriptan, naratriptan, rizatriptan, sumatriptan, zolmitriptan medicines for pain like pentazocine, buprenorphine, butorphanol, meperidine, nalbuphine, and propoxyphene medicines for sleep muscle relaxants naltrexone phenobarbital phenothiazines like perphenazine, thioridazine, chlorpromazine, mesoridazine, fluphenazine, prochlorperazine, promazine, and trifluoperazine procarbazine warfarin What if I miss a dose? If you miss a dose, take it as soon as you can. If it is almost time for your next dose, take only that dose. Do not take double or extra doses. Where should I keep my medicine? Keep out of the reach of children. Store at room temperature between 15 and 30 degrees C (59 and 86 degrees F). Keep container tightly closed. Throw away any unused medicine after the expiration date. What should I tell my health care provider before I take this medicine? They need to know if you have any of these conditions: brain tumor depression drug abuse or addiction head injury if you frequently drink alcohol containing drinks kidney disease or trouble passing urine liver disease lung disease, asthma, or breathing problems seizures or epilepsy suicidal thoughts, plans, or attempt; a previous suicide attempt by you or a family member an unusual or allergic reaction to tramadol, codeine, other medicines, foods, dyes, or preservatives or trying to get breast-feeding What should I watch for while using this medicine? Tell your doctor or health care aid if your pain does not go away, if it gets worse, or if you have new or a different type of pain. You may develop tolerance to the medicine. Tolerance means that you will need a higher dose of the medicine for pain relief. Tolerance is normal and is expected if you take this medicine for a long time. Do not suddenly stop taking your medicine because you may develop a severe reaction. Your body becomes used to the medicine. This does NOT mean you are addicted. Addiction is a behavior related to getting and using a drug for a non-medical reason. If you have pain, you have a medical reason to take pain medicine. Your doctor will tell you how much medicine to take. If your doctor wants you to stop the medicine, the dose will be slowly lowered over time to avoid any side effects. You may get drowsy or dizzy. Do not drive, use machinery, or do anything that needs mental alertness until you know how this medicine affects you. Do not stand or sit up quickly, especially if you are an older patient. This reduces the risk of dizzy or fainting spells. Alcohol can increase or decrease the effects of this medicine. Avoid alcoholic drinks. You may have constipation. Try to have a bowel movement at least every 2 to 3 days. If you do not have a bowel movement for 3 days, call your doctor or health care aid. Your mouth may get dry. Chewing sugarless gum or sucking hard candy, and drinking plenty of water may help. Contact your doctor if the problem does not go away or is severe. You have been given the following additional information: Abdominal Pain, Unknown Cause, (Female) Ondansetron Oral disintegrating tablet Famotidine Oral tablet Tramadol Hydrochloride Oral tablet Do not work tomorrow, for two days. (Electronically signed by Jazz Lopes A.R.N.P. 02/25/2017 23:07)
--- NOTE | 2017-02-25 23:07 | ED MED RECONCILIATION SUMMARY ---
Patient: TRINIDAD JENKINS Medication Reconciliation Report [facility] VisitID: [id number] [address] [place] [address] 26y, F Registration Date/Time: 02/25/2017 Weight: 52.1 kg Height/Length: 67 in. BMI: 18.0 ALLERGIES: No Known Drug Allergy The patient's Home Medications are listed below: NONE. The source(s) of the original Home Medication information: Not obtained. The following Medications were given to the patient in the Emergency Department: Toradol [IVP] IVP 30 mg, administered: 02/25/2017 7:42:00 PM Zofran [IVP] IVP 4 mg, administered: 02/25/2017 7:39:00 PM The following Medications were prescribed to the patient: Zofran 4 mg: Take 1 orally every six hours as needed for nausea/vomiting. Dispense ten (10). No refills. Substitution is permissible. -- Jazz Lopes A.R.N.P. Pepcid 20 mg tablets: Take 1 orally every 12 hours. Dispense thirty (30). No refills. Substitution is permissible. -- Jazz Lopes A.R.N.P. Ultram 50 mg tablets: take 1-2 orally every 6 hours as needed for pain. Dispense twenty (20). No refills. Substitution is permissible. -- Jazz Lopes A.R.N.P.
--- NOTE | 2017-02-25 23:07 | ED MAR SUMMARY ---
..... Medication Administration Record [facility] [address] [place] [address] Patient: TRINIDAD JENKINS Visit ID: [id number] 26y, F Weight: 52.1 kg Height/Length: 67 in BMI: 18 ALLERGIES: No Known Drug Allergy Given 19:39 02/25/2017 Tariq Pardo R.N. Medication Administered: ZOFRAN [IVP] (ONDANSETRON HCL), Dose: 4 mg IVP over 2 minute(s), Site: #1 right AC. Medication Ordered: Zofran IV 4 mg (NOW). Given 19:42 02/25/2017 Tariq Pardo R.N. Medication Administered: TORADOL [IVP], Dose: 30 mg IVP over 2 minute(s), Site: #1 right AC. Medication Ordered: Toradol IV 30 mg (NOW).
--- NOTE | 2017-02-25 23:07 | ED MED RECONCILIATION SUMMARY ---
Patient: TRINIDAD JENKINS Medication Reconciliation Report [facility] VisitID: [id number] [address] [place] [address] 26y, F Registration Date/Time: 02/25/2017 Weight: 52.1 kg Height/Length: 67 in. BMI: 18.0 ALLERGIES: No Known Drug Allergy The patient's Home Medications are listed below: NONE. The source(s) of the original Home Medication information: Not obtained. The following Medications were given to the patient in the Emergency Department: Toradol [IVP] IVP 30 mg, administered: 02/25/2017 7:42:00 PM Zofran [IVP] IVP 4 mg, administered: 02/25/2017 7:39:00 PM The following Medications were prescribed to the patient: Zofran 4 mg: Take 1 orally every six hours as needed for nausea/vomiting. Dispense ten (10). No refills. Substitution is permissible. -- Jazz Lopes A.R.N.P. Pepcid 20 mg tablets: Take 1 orally every 12 hours. Dispense thirty (30). No refills. Substitution is permissible. -- Jazz Lopes A.R.N.P. Ultram 50 mg tablets: take 1-2 orally every 6 hours as needed for pain. Dispense twenty (20). No refills. Substitution is permissible. -- Jazz Lopes A.R.N.P.
--- NOTE | 2017-02-25 23:07 | ED MAR SUMMARY ---
..... Medication Administration Record [facility] [address] [place] [address] Patient: TRINIDAD JENKINS Visit ID: [id number] 26y, F Weight: 52.1 kg Height/Length: 67 in BMI: 18 ALLERGIES: No Known Drug Allergy Given 19:39 02/25/2017 Tariq Pardo R.N. Medication Administered: ZOFRAN [IVP] (ONDANSETRON HCL), Dose: 4 mg IVP over 2 minute(s), Site: #1 right AC. Medication Ordered: Zofran IV 4 mg (NOW). Given 19:42 02/25/2017 Tariq Pardo R.N. Medication Administered: TORADOL [IVP], Dose: 30 mg IVP over 2 minute(s), Site: #1 right AC. Medication Ordered: Toradol IV 30 mg (NOW).
== END 2017-02-25 21:00 | disposition home or self-care (01) ==
LOC: ED SRH 18:09
DX: R10.12 Left upper quadrant pain (principal)
CPT/HCPCS: 90004; 90100; 92235; 92530; 93070; 95059